=== PATIENT | female | born 1965 | race American Indian/Alaskan Native ===

== ENCOUNTER 2022-02-06 13:17 | Inpatient (IN) ==
[2022-02-06] MEDS ORDERED: GLUCAGON 1 MG VIAL IM PRN (16:12)
[2022-02-06] MEDS ORDERED: ACETAMINOPHEN 325 MG TABLET PO PRN (16:13)
[2022-02-06] MEDS ORDERED: ONDANSETRON 4 MG/2 ML VIAL IV PRN (16:13)
[2022-02-06] MEDS ORDERED: SIMETHICONE CHEW 125 MG TABLET PO PRN (16:14)
[2022-02-06] MEDS ORDERED: DOCUSATE SODIUM 100 MG CAPSULE PO PRN (16:14)
[2022-02-06] MEDS ORDERED: DEXTROSE 10% 250 ML BAG IV PRN (16:37)
[2022-02-06 16:55] LABS: Basophils # 0.1 10*3/uL (0.0-0.2); Eosinophils # 0.3 10*3/uL (0.0-0.87); Eosinophils % 4.2 % (0.00-10.9); Hematocrit 40.7 VOL% (35.7-47.0); Hemoglobin 12.7 GM/DL (12.0-16.0); Immature Granulocytes % 0.3 %; Immature Granulocytes Absolute 0.02 #; Lymphocytes # 1.7 10*3/uL (1.4-4.0); Lymphocytes % 27.6 % (21.3-54.2); Mean Corpuscular HGB Conc 31.2 GM/DL (32-36); Mean Corpuscular Volume 95.1 FL (87-102); Mean Platelet Volume 10.8 FL (9.6-12.0); Monocytes # 0.6 10*3/uL (0.11-0.8); Monocytes % 9.5 % (1.7-12.7); Neutrophils % 57.4 % (38.7-73.9); Platelet Count 198 T/CUMM (130-400); Red Blood Count 4.28 MC/CUMM (3.8-5.5)
[2022-02-06 17:51] LABS: Albumin 2.6 G/DL (3.4-5.0); Bilirubin,Total 0.7 MG/DL (0.20-1.00); Calcium 7.9 MG/DL (8.5-10.1); Osmolality,Calculated 294.7 MOS/KG (273-304); Potassium 4.4 MMOL/L (3.5-5.1); Thyroid Stimulating Hormone 4.1 uIU/ml (0.358-3.74)
[2022-02-06] MEDS: ENOXAPARIN 40 MG/0.4 ML SYRINGE SUBCUT SCH (18:00)
[2022-02-06] MEDS: hydrALAZINE 20 MG/1 ML VIAL IV PRN (18:00)
[2022-02-07 05:51] LABS: Basophils # 0.1 10*3/uL (0.0-0.2); Basophils % 0.9 % (0.0-0.8); Eosinophils # 0.3 10*3/uL (0.0-0.87); Eosinophils % 4.5 % (0.00-10.9); Hematocrit 37.6 VOL% (35.7-47.0); Hemoglobin 11.7 GM/DL (12.0-16.0); Immature Granulocytes % 0.3 %; Immature Granulocytes Absolute 0.02 #; Lymphocytes # 1.2 10*3/uL (1.4-4.0); Lymphocytes % 21.4 % (21.3-54.2); Mean Corpuscular HGB Conc 31.1 GM/DL (32-36); Mean Corpuscular Volume 94.9 FL (87-102); Mean Platelet Volume 10.6 FL (9.6-12.0); Monocytes # 0.6 10*3/uL (0.11-0.8); Monocytes % 10.8 % (1.7-12.7); Neutrophils % 62.1 % (38.7-73.9); Platelet Count 188 T/CUMM (130-400); Red Blood Count 3.96 MC/CUMM (3.8-5.5); Red Cell Distribution Width 18.8 % (9.3-17.3); White Blood Count 5.7 T/CUMM (4-12)
[2022-02-07 06:04] LABS: Albumin 2.1 G/DL (3.4-5.0); Bilirubin,Total 0.7 MG/DL (0.20-1.00); Calcium 8.1 MG/DL (8.5-10.1); Osmolality,Calculated 294.7 MOS/KG (273-304); Potassium 4.6 MMOL/L (3.5-5.1); Risk Ratio 3.21; Total Protein 6.3 G/DL (6.4-8.2); VLDL Cholesterol 14.8 MG/DL
[2022-02-07] MEDS ORDERED: PERMETHRIN 5% CREAM 60 GM TUBE TOP ONE (08:00)
[2022-02-07] MEDS: INSULIN REGULAR 100 UNIT/ML SUBCUT SCH ×4 (08:27→19:35)
[2022-02-07] MEDS: PANTOPRAZOLE 40 MG TABLET PO SCH (09:17)
[2022-02-07] MEDS: ENOXAPARIN 40 MG/0.4 ML SYRINGE SUBCUT SCH (09:17)
[2022-02-07 11:14] LABS: Mucus,Urine Occasional /LPF (Occasional); RBC,Urine <1 /HPF (0-4); Squamous Epithelial Cell,Urine Occasional /HPF (0-10)
[2022-02-07 11:21] LABS: Glucose,Urine (UA) Negative (Negative); Ketones,Urine Negative (Negative); Nitrite,Urine Negative (Negative); Protein,Urine >=300 mg/dL (Negative); Urine Appearance Clear (Clear); Urine Color Yellow (Yellow); Urine Specific Gravity > 1.030 (1.001-1.035); Urine pH 5.5 (4.5-8.0)
[2022-02-07 11:22] LABS: Bilirubin,Urine Small mg/dL (Negative); Blood, Urine Trace mg/dL (Negative); Urine Urobilinogen 0.2 eU/dL (<2.0)
[2022-02-07] MEDS: ASPIRIN EC 81 MG TABLET PO SCH (12:22)
[2022-02-07] MEDS: SACUBITRIL/VALSARTAN 49-51 MG TABLET PO SCH ×2 (12:22→19:35)
[2022-02-07] MEDS: ATORVASTATIN 20 MG TABLET PO SCH (12:22)
[2022-02-07] MEDS: SPIRONOLACTONE 25 MG TABLET PO SCH (12:23)
[2022-02-07] MEDS: FUROSEMIDE 40 MG/4 ML VIAL IV SCH ×2 (12:23→16:28)
[2022-02-07] MEDS ORDERED: SACUBITRIL/VALSARTAN 49-51 MG TABLET PO SCH (12:30)
[2022-02-07] MEDS: hydrALAZINE 20 MG/1 ML VIAL IV PRN (16:27)
[2022-02-07] MEDS: carvediloL 6.25 MG TABLET PO SCH (16:28)
[2022-02-08 04:58] LABS: Basophils # 0.1 10*3/uL (0.0-0.2); Basophils % 0.9 % (0.0-0.8); Eosinophils # 0.2 10*3/uL (0.0-0.87); Eosinophils % 3.6 % (0.00-10.9); Hematocrit 36.9 VOL% (35.7-47.0); Hemoglobin 11.8 GM/DL (12.0-16.0); Immature Granulocytes % 0.3 %; Immature Granulocytes Absolute 0.02 #; Lymphocytes # 1.2 10*3/uL (1.4-4.0); Lymphocytes % 18.1 % (21.3-54.2); Mean Corpuscular Volume 94.4 FL (87-102); Mean Platelet Volume 10.5 FL (9.6-12.0); Monocytes # 0.8 10*3/uL (0.11-0.8); Monocytes % 11.6 % (1.7-12.7); Neutrophils % 65.5 % (38.7-73.9); Platelet Count 198 T/CUMM (130-400); Red Blood Count 3.91 MC/CUMM (3.8-5.5); White Blood Count 6.6 T/CUMM (4-12)
[2022-02-08 05:17] LABS: Osmolality,Calculated 294.1 MOS/KG (273-304); Potassium 4.2 MMOL/L (3.5-5.1)
[2022-02-08] MEDS: INSULIN REGULAR 100 UNIT/ML SUBCUT SCH ×4 (08:39→21:27)
[2022-02-08] MEDS: FUROSEMIDE 40 MG/4 ML VIAL IV SCH ×2 (08:43→17:32)
[2022-02-08] MEDS: ENOXAPARIN 40 MG/0.4 ML SYRINGE SUBCUT SCH (08:44)
[2022-02-08] MEDS: SPIRONOLACTONE 25 MG TABLET PO SCH (08:44)
[2022-02-08] MEDS: ATORVASTATIN 20 MG TABLET PO SCH (08:44)
[2022-02-08] MEDS: ASPIRIN EC 81 MG TABLET PO SCH (08:44)
[2022-02-08] MEDS: SACUBITRIL/VALSARTAN 49-51 MG TABLET PO SCH ×2 (08:44→21:25)
[2022-02-08] MEDS: PANTOPRAZOLE 40 MG TABLET PO SCH (08:45)
[2022-02-08] MEDS: carvediloL 6.25 MG TABLET PO SCH ×2 (08:45→17:32)
[2022-02-08] MEDS ORDERED: metOLazone 5 MG TABLET PO SCH (10:00)
[2022-02-08] MEDS ORDERED: metOLazone 5 MG TABLET PO ONE (13:00)
[2022-02-09 05:50] LABS: Calcium 7.7 MG/DL (8.5-10.1); Osmolality,Calculated 293.1 MOS/KG (273-304); Potassium 4.3 MMOL/L (3.5-5.1)
[2022-02-09 05:51] LABS: Basophils # 0.1 10*3/uL (0.0-0.2); Eosinophils # 0.3 10*3/uL (0.0-0.87); Eosinophils % 5.2 % (0.00-10.9); Hematocrit 34.8 VOL% (35.7-47.0); Hemoglobin 10.8 GM/DL (12.0-16.0); Immature Granulocytes % 0.3 %; Immature Granulocytes Absolute 0.02 #; Lymphocytes # 1.8 10*3/uL (1.4-4.0); Lymphocytes % 29.1 % (21.3-54.2); Mean Corpuscular Volume 96.1 FL (87-102); Mean Platelet Volume 10.7 FL (9.6-12.0); Monocytes # 0.9 10*3/uL (0.11-0.8); Monocytes % 14.1 % (1.7-12.7); Neutrophils % 50.3 % (38.7-73.9); Platelet Count 193 T/CUMM (130-400); Red Blood Count 3.62 MC/CUMM (3.8-5.5); Red Cell Distribution Width 18.7 % (9.3-17.3); White Blood Count 6.3 T/CUMM (4-12)
[2022-02-09] MEDS: INSULIN REGULAR 100 UNIT/ML SUBCUT SCH ×3 (07:27→16:00)
[2022-02-09] MEDS: SACUBITRIL/VALSARTAN 49-51 MG TABLET PO SCH (08:17)
[2022-02-09] MEDS: FUROSEMIDE 40 MG/4 ML VIAL IV SCH ×2 (08:17→16:00)
[2022-02-09] MEDS: ENOXAPARIN 40 MG/0.4 ML SYRINGE SUBCUT SCH (08:17)
[2022-02-09] MEDS: ASPIRIN EC 81 MG TABLET PO SCH (08:18)
[2022-02-09] MEDS: carvediloL 6.25 MG TABLET PO SCH ×2 (08:18→16:00)
[2022-02-09] MEDS: PANTOPRAZOLE 40 MG TABLET PO SCH (08:18)
[2022-02-09] MEDS: SPIRONOLACTONE 25 MG TABLET PO SCH (08:18)
[2022-02-09] MEDS: ATORVASTATIN 20 MG TABLET PO SCH (08:18)
[2022-02-09 13:16] VITALS: BP 154/75
== END 2022-02-09 16:00 | disposition home or self-care (01) | DRG 280 ==
LOC: SUATTDRO → N.ED 13:17 → N.EDINP 19:35 → SUATTDRO 19:35 → N.EDINP 20:45 → N.3E 21:28
PROVIDERS: ADMIT Hospitalist; ATTEND Internal Medicine

== ENCOUNTER 2022-08-25 10:21 | Inpatient (IN) ==
[~2022-08-25 10:21] MED LIST: ASPIRIN 325 MG TABLET PO ONE; DIAZEPAM 5 MG TABLET PO ONE; MAGNESIUM SULF RIDER 2 GM/50 ML PREMIX IV PRN; POTASSIUM CHLORIDE RIDER 10 MEQ/100 ML PREMIX IV PRN; diphenhydrAMINE CAP 50 MG CAPSULE PO ONE
[2022-08-25] MEDS ORDERED: ASPIRIN 325 MG TABLET ONE (12:33)
[2022-08-25] MEDS ORDERED: DIAZEPAM 5 MG TABLET ONE (12:33)
[2022-08-25] MEDS ORDERED: diphenhydrAMINE CAP 50 MG CAPSULE ONE (12:33)
[2022-08-25] MEDS: SODIUM CHLORIDE 0.9% 1,000 ML IV SCH ×2 (12:41→16:21)
[2022-08-25] MEDS ORDERED: MIDAZOLAM 2 MG/2 ML VIAL ONE (14:11)
[2022-08-25] MEDS ORDERED: HYDROmorphone 1 MG/1 ML SYRINGE ONE (14:41)
[2022-08-25] MEDS ORDERED: NITROGLYCERIN SL 0.4 MG TABLET SL PRN (15:06)
[2022-08-25] MEDS ORDERED: ONDANSETRON 4 MG/2 ML VIAL IV PRN (15:06)
[2022-08-25] MEDS ORDERED: ZALEPLON 5 MG CAPSULE PO PRN (15:06)
[2022-08-25] MEDS ORDERED: FUROSEMIDE 40 MG/4 ML VIAL IV ONE (15:14)
[2022-08-25] MEDS ORDERED: INFLUENZA VIRUS VACCINE 0.5 ML SYRINGE IM ONE (16:27)
[2022-08-25] MEDS: carvediloL 6.25 MG TABLET PO SCH (17:57)
[2022-08-25 17:58] LABS: Bilirubin,Urine Negative (Negative); Blood, Urine Moderate mg/dL (Negative); Glucose,Urine (UA) Negative (Negative); Hyaline Casts,Urine 3 /LPF (0-3); Ketones,Urine Negative (Negative); Mucus,Urine Occasional /LPF (Occasional); Nitrite,Urine Negative (Negative); Protein,Urine 100 mg/dL (Negative); RBC,Urine 1 /HPF (0-4); Squamous Epithelial Cell,Urine Occasional /HPF (0-10); Urine Appearance CLEAR (Clear); Urine Color Yellow (Yellow); Urine Specific Gravity 1.021 (1.001-1.035); Urine Urobilinogen < 2.0 eU/dL (<2.0)
[2022-08-25] MEDS: SACUBITRIL/VALSARTAN 49-51 MG TABLET PO SCH (21:00)
[2022-08-26 05:49] LABS: Basophils # 0.1 10*3/uL (0.0-0.2); Basophils % 1.1 % (0.0-0.8); Eosinophils # 0.3 10*3/uL (0.0-0.87); Eosinophils % 3.3 % (0.00-10.9); Hemoglobin 13.1 GM/DL (12.0-16.0); Immature Granulocytes % 0.5 %; Immature Granulocytes Absolute 0.04 #; Lymphocytes # 1.1 10*3/uL (1.4-4.0); Mean Corpuscular HGB Conc 31.2 GM/DL (32-36); Mean Corpuscular Volume 98.1 FL (87-102); Mean Platelet Volume 10.7 FL (9.6-12.0); Monocytes # 0.7 10*3/uL (0.11-0.8); Monocytes % 9.7 % (1.7-12.7); NRBC # 0.02 10*3/uL; Neutrophils % 70.4 % (38.7-73.9); Platelet Count 202 T/CUMM (130-400); Red Blood Count 4.28 MC/CUMM (3.8-5.5); Red Cell Distribution Width 19.2 % (9.3-17.3); White Blood Count 7.6 T/CUMM (4-12)
[2022-08-26 06:19] LABS: Calcium 7.9 MG/DL (8.5-10.1); Osmolality,Calculated 299.6 MOS/KG (273-304); Potassium 4.4 MMOL/L (3.5-5.1); Risk Ratio 4.96; VLDL Cholesterol 18.4 MG/DL
[2022-08-26] MEDS: ATORVASTATIN 20 MG TABLET PO SCH (08:29)
[2022-08-26] MEDS: SPIRONOLACTONE 25 MG TABLET PO SCH (08:30)
[2022-08-26] MEDS: SACUBITRIL/VALSARTAN 49-51 MG TABLET PO SCH ×2 (08:30→20:42)
[2022-08-26] MEDS: ASPIRIN EC 81 MG TABLET PO SCH (08:30)
[2022-08-26] MEDS: carvediloL 6.25 MG TABLET PO SCH ×2 (08:30→17:13)
[2022-08-26] MEDS ORDERED: FUROSEMIDE 40 MG TABLET PO SCH (09:00)
[2022-08-26] MEDS: SODIUM CHLORIDE 0.9% 1,000 ML IV SCH (11:51)
[2022-08-26] MEDS: LOPERAMIDE 2 MG CAPSULE PO PRN ×3 (14:16→20:42)
[2022-08-26] MEDS: FUROSEMIDE 40 MG/4 ML VIAL IV SCH (15:37)
[2022-08-26] MEDS: INSULIN LISPRO 100 UNIT/ML SUBCUT SCH ×2 (17:13→21:41)
[2022-08-27 06:25] LABS: Basophils % 0.4 % (0.0-0.8); Eosinophils # 0.2 10*3/uL (0.0-0.87); Eosinophils % 1.7 % (0.00-10.9); Hematocrit 37.7 VOL% (35.7-47.0); Hemoglobin 11.9 GM/DL (12.0-16.0); Immature Granulocytes % 0.5 %; Immature Granulocytes Absolute 0.05 #; Lymphocytes # 1.1 10*3/uL (1.4-4.0); Lymphocytes % 10.7 % (21.3-54.2); Mean Corpuscular HGB Conc 31.6 GM/DL (32-36); Mean Corpuscular Volume 97.7 FL (87-102); Mean Platelet Volume 11.1 FL (9.6-12.0); Monocytes # 1.1 10*3/uL (0.11-0.8); Monocytes % 11.5 % (1.7-12.7); NRBC # 0.02 10*3/uL; Neutrophils % 75.2 % (38.7-73.9); Platelet Count 193 T/CUMM (130-400); Red Blood Count 3.86 MC/CUMM (3.8-5.5); Red Cell Distribution Width 18.6 % (9.3-17.3); White Blood Count 9.8 T/CUMM (4-12)
[2022-08-27 06:42] LABS: Calcium 7.8 MG/DL (8.5-10.1); Osmolality,Calculated 298.8 MOS/KG (273-304); Potassium 4.7 MMOL/L (3.5-5.1)
[2022-08-27] MEDS: FUROSEMIDE 40 MG/4 ML VIAL IV SCH ×2 (09:40→15:10)
[2022-08-27] MEDS: carvediloL 6.25 MG TABLET PO SCH ×2 (09:40→16:02)
[2022-08-27] MEDS: INSULIN LISPRO 100 UNIT/ML SUBCUT SCH ×4 (09:40→23:00)
[2022-08-27] MEDS: ATORVASTATIN 20 MG TABLET PO SCH (09:41)
[2022-08-27] MEDS: SPIRONOLACTONE 25 MG TABLET PO SCH (09:41)
[2022-08-27] MEDS: SACUBITRIL/VALSARTAN 49-51 MG TABLET PO SCH ×2 (09:41→21:18)
[2022-08-27] MEDS: ASPIRIN EC 81 MG TABLET PO SCH (09:41)
[2022-08-27 13:38] LABS: Total Protein 24 Hr Ur Result 935 MG/24HR (0-149.1); Total Volume,Urine 1100 ML (400-2000)
[2022-08-27 14:13] LABS: Albumin 1.7 G/DL (3.4-5.0); Bilirubin,Total 1.2 MG/DL (0.20-1.00); Calcium 7.8 MG/DL (8.5-10.1); Potassium 4.4 MMOL/L (3.5-5.1); Total Protein 5.7 G/DL (6.4-8.2)
[2022-08-28 05:10] LABS: Basophils # 0.1 10*3/uL (0.0-0.2); Basophils % 0.6 % (0.0-0.8); Eosinophils # 0.2 10*3/uL (0.0-0.87); Eosinophils % 1.8 % (0.00-10.9); Hematocrit 37.9 VOL% (35.7-47.0); Hemoglobin 11.9 GM/DL (12.0-16.0); Immature Granulocytes % 0.5 %; Immature Granulocytes Absolute 0.04 #; Lymphocytes # 1.3 10*3/uL (1.4-4.0); Lymphocytes % 15.1 % (21.3-54.2); Mean Corpuscular HGB Conc 31.4 GM/DL (32-36); Mean Corpuscular Volume 97.2 FL (87-102); Mean Platelet Volume 10.8 FL (9.6-12.0); Monocytes # 1.1 10*3/uL (0.11-0.8); Monocytes % 12.1 % (1.7-12.7); Neutrophils % 69.9 % (38.7-73.9); Platelet Count 209 T/CUMM (130-400); Red Cell Distribution Width 18.9 % (9.3-17.3); White Blood Count 8.7 T/CUMM (4-12)
[2022-08-28 05:28] LABS: Calcium 7.8 MG/DL (8.5-10.1); Osmolality,Calculated 299.1 MOS/KG (273-304)
[2022-08-28] MEDS: INSULIN LISPRO 100 UNIT/ML SUBCUT SCH ×4 (08:37→21:54)
[2022-08-28] MEDS: FUROSEMIDE 40 MG/4 ML VIAL IV SCH ×2 (09:48→17:57)
[2022-08-28] MEDS: ASPIRIN EC 81 MG TABLET PO SCH (09:48)
[2022-08-28] MEDS: carvediloL 6.25 MG TABLET PO SCH ×2 (09:48→17:57)
[2022-08-28] MEDS: ATORVASTATIN 20 MG TABLET PO SCH (09:48)
[2022-08-28] MEDS ORDERED: metOLazone 5 MG TABLET PO SCH (11:30)
[2022-08-29 04:41] LABS: Basophils # 0.1 10*3/uL (0.0-0.2); Basophils % 0.8 % (0.0-0.8); Eosinophils # 0.2 10*3/uL (0.0-0.87); Eosinophils % 2.7 % (0.00-10.9); Hematocrit 38.5 VOL% (35.7-47.0); Hemoglobin 12.3 GM/DL (12.0-16.0); Immature Granulocytes % 0.4 %; Immature Granulocytes Absolute 0.03 #; Lymphocytes # 1.2 10*3/uL (1.4-4.0); Lymphocytes % 15.8 % (21.3-54.2); Mean Corpuscular HGB Conc 31.9 GM/DL (32-36); Mean Corpuscular Volume 95.8 FL (87-102); Mean Platelet Volume 10.1 FL (9.6-12.0); Monocytes % 13.9 % (1.7-12.7); Neutrophils % 66.4 % (38.7-73.9); Platelet Count 189 T/CUMM (130-400); Red Blood Count 4.02 MC/CUMM (3.8-5.5); Red Cell Distribution Width 18.7 % (9.3-17.3); White Blood Count 7.3 T/CUMM (4-12)
[2022-08-29 05:04] LABS: Calcium 7.9 MG/DL (8.5-10.1); Potassium 4.7 MMOL/L (3.5-5.1)
[2022-08-29] MEDS: INSULIN LISPRO 100 UNIT/ML SUBCUT SCH ×3 (09:15→16:12)
[2022-08-29] MEDS: ASPIRIN EC 81 MG TABLET PO SCH (09:20)
[2022-08-29] MEDS: carvediloL 6.25 MG TABLET PO SCH ×2 (09:20→17:40)
[2022-08-29] MEDS: ATORVASTATIN 20 MG TABLET PO SCH (09:20)
[2022-08-29] MEDS: FUROSEMIDE 40 MG/4 ML VIAL IV SCH ×2 (09:23→15:44)
[2022-08-29] MEDS: SILDENAFIL 20 MG TABLET PO SCH (15:44)
[2022-08-30] MEDS: SILDENAFIL 20 MG TABLET PO SCH ×2 (00:39→09:04)
[2022-08-30] MEDS: INSULIN LISPRO 100 UNIT/ML SUBCUT SCH ×3 (00:40→11:51)
[2022-08-30 06:04] LABS: Basophils # 0.1 10*3/uL (0.0-0.2); Basophils % 0.7 % (0.0-0.8); Eosinophils # 0.2 10*3/uL (0.0-0.87); Eosinophils % 3.2 % (0.00-10.9); Hematocrit 37.2 VOL% (35.7-47.0); Hemoglobin 11.9 GM/DL (12.0-16.0); Immature Granulocytes % 0.3 %; Immature Granulocytes Absolute 0.02 #; Lymphocytes # 1.1 10*3/uL (1.4-4.0); Lymphocytes % 15.6 % (21.3-54.2); Mean Corpuscular Volume 95.9 FL (87-102); Mean Platelet Volume 11.1 FL (9.6-12.0); Monocytes % 14.7 % (1.7-12.7); Neutrophils % 65.5 % (38.7-73.9); Platelet Count 200 T/CUMM (130-400); Red Blood Count 3.88 MC/CUMM (3.8-5.5); Red Cell Distribution Width 18.6 % (9.3-17.3); White Blood Count 6.9 T/CUMM (4-12)
[2022-08-30 06:35] LABS: Calcium 7.8 MG/DL (8.5-10.1); Potassium 4.7 MMOL/L (3.5-5.1)
[2022-08-30] MEDS: FUROSEMIDE 40 MG/4 ML VIAL IV SCH (08:36)
[2022-08-30 08:55] VITALS: BP 108/53
[2022-08-30] MEDS: carvediloL 6.25 MG TABLET PO SCH (09:04)
[2022-08-30] MEDS: SACUBITRIL/VALSARTAN 49-51 MG TABLET PO SCH (09:04)
[2022-08-30] MEDS: ATORVASTATIN 20 MG TABLET PO SCH (09:04)
[2022-08-30] MEDS: ASPIRIN EC 81 MG TABLET PO SCH (09:04)
== END 2022-08-30 12:55 | disposition home or self-care (01) | DRG 682 ==
LOC: N.CL 10:21 → N.2W 15:51 → N.TELES 08-28 19:27
PROVIDERS: ADMIT Internal Medicine Cardiovascular Disease; ATTEND Internal Medicine Cardiovascular Disease

== ENCOUNTER 2022-09-20 15:51 | Inpatient (IN) ==
[2022-09-20 16:52] LABS: Basophils % 0.3 % (0.0-0.8); Eosinophils # 0.1 10*3/uL (0.0-0.87); Eosinophils % 0.4 % (0.00-10.9); Hematocrit 38.2 VOL% (35.7-47.0); Hemoglobin 12.2 GM/DL (12.0-16.0); Immature Granulocytes Absolute 0.12 #; Lymphocytes # 0.4 10*3/uL (1.4-4.0); Lymphocytes % 3.5 % (21.3-54.2); Mean Corpuscular HGB Conc 31.9 GM/DL (32-36); Mean Corpuscular Volume 96.5 FL (87-102); Mean Platelet Volume 10.8 FL (9.6-12.0); Monocytes # 0.5 10*3/uL (0.11-0.8); Monocytes % 3.6 % (1.7-12.7); NRBC # 0.03 10*3/uL; Neutrophils % 91.2 % (38.7-73.9); Platelet Count 197 T/CUMM (130-400); Red Blood Count 3.96 MC/CUMM (3.8-5.5); Red Cell Distribution Width 19.4 % (9.3-17.3); White Blood Count 12.5 T/CUMM (4-12)
[2022-09-20 17:09] LABS: Albumin 2.2 G/DL (3.4-5.0); Bilirubin,Total 3.2 MG/DL (0.20-1.00); Calcium 8.1 MG/DL (8.5-10.1); Osmolality,Calculated 296.8 MOS/KG (273-304); Potassium 3.9 MMOL/L (3.5-5.1); Total Protein 6.7 G/DL (6.4-8.2)
[2022-09-20] MEDS ORDERED: FUROSEMIDE 40 MG/4 ML VIAL IV STA (17:28)
[2022-09-20] MEDS ORDERED: MAGNESIUM SULF RIDER 2 GM/50 ML PREMIX IV PRN (17:58)
[2022-09-20] MEDS ORDERED: ONDANSETRON 4 MG/2 ML VIAL IV PRN (17:58)
[2022-09-20] MEDS ORDERED: MAGNESIUM SULF RIDER 4 GM/100 ML PREMIX IV PRN (17:58)
[2022-09-20] MEDS ORDERED: ACETAMINOPHEN 325 MG TABLET PO PRN (17:58)
[2022-09-20] MEDS ORDERED: ENOXAPARIN 40 MG/0.4 ML SYRINGE SUBCUT SCH ×2 (18:00→21:00)
[2022-09-20] MEDS: FUROSEMIDE 40 MG/4 ML VIAL IV SCH (18:17)
[2022-09-20 18:22] LABS: Band Neutrophils 7 % (0-10); Lymphocytes 4 % (20-55); Total Cells Counted 100
[2022-09-20 18:23] LABS: Hypochromia Slight; Ovalocytes Slight
[2022-09-20 18:24] LABS: Platelet Estimate Normal; Polychromasia Slight
[2022-09-20 18:24] LABS: Urine Appearance Clear (Clear); Urine Color Yellow (Yellow)
[2022-09-20 18:25] LABS: Bilirubin,Urine Small mg/dL (Negative); Blood, Urine Large mg/dL (Negative); Glucose,Urine (UA) Negative (Negative); Ketones,Urine Negative (Negative); Nitrite,Urine Negative (Negative); Protein,Urine >=300 mg/dL (Negative); Urine Specific Gravity 1.025 (1.001-1.035); Urine pH 5.5 (4.5-8.0)
[2022-09-20 18:26] LABS: Bacteria,Urine Occasional /HPF (Few); Hyaline Casts,Urine 7 /LPF (0-3); Mucus,Urine Occasional /LPF (Occasional); RBC,Urine 7 /HPF (0-4); Squamous Epithelial Cell,Urine Occasional /HPF (0-10)
[2022-09-20] MEDS: ASPIRIN EC 325 MG TABLET PO SCH (22:23)
[2022-09-20] MEDS: SILDENAFIL 20 MG TABLET PO SCH (22:23)
[2022-09-21 04:57] LABS: Basophils # 0.1 10*3/uL (0.0-0.2); Basophils % 0.3 % (0.0-0.8); Eosinophils # 0.2 10*3/uL (0.0-0.87); Eosinophils % 0.8 % (0.00-10.9); Hematocrit 37.4 VOL% (35.7-47.0); Hemoglobin 11.7 GM/DL (12.0-16.0); Immature Granulocytes % 4.6 %; Immature Granulocytes Absolute 1.29 #; Lymphocytes # 1.2 10*3/uL (1.4-4.0); Lymphocytes % 4.2 % (21.3-54.2); Mean Corpuscular HGB Conc 31.3 GM/DL (32-36); Mean Corpuscular Volume 98.2 FL (87-102); Mean Platelet Volume 11.1 FL (9.6-12.0); Monocytes # 1.8 10*3/uL (0.11-0.8); Monocytes % 6.6 % (1.7-12.7); Neutrophils % 83.5 % (38.7-73.9); Platelet Count 192 T/CUMM (130-400); Red Blood Count 3.81 MC/CUMM (3.8-5.5); Red Cell Distribution Width 19.9 % (9.3-17.3)
[2022-09-21 05:19] LABS: Band Neutrophils 7 % (0-10); Lymphocytes 8 % (20-55); Platelet Estimate Adequate; Total Cells Counted 100
[2022-09-21 05:20] LABS: Calcium 7.9 MG/DL (8.5-10.1); Osmolality,Calculated 290.3 MOS/KG (273-304); Potassium 3.9 MMOL/L (3.5-5.1)
[2022-09-21] MEDS: PANTOPRAZOLE 40 MG TABLET PO SCH (09:07)
[2022-09-21] MEDS: FUROSEMIDE 40 MG/4 ML VIAL IV SCH ×2 (09:07→17:11)
[2022-09-21] MEDS: SILDENAFIL 20 MG TABLET PO SCH ×3 (09:07→21:05)
[2022-09-21] MEDS: ASPIRIN EC 325 MG TABLET PO SCH (09:07)
[2022-09-21] MEDS: ENOXAPARIN 100 MG/ML SYRINGE SUBCUT SCH (10:44)
[2022-09-21] MEDS ORDERED: VANCOMYCIN INJ 1,500 MG in SODIUM CHLORIDE 0.9% 500 ML IV ONE (11:00)
[2022-09-21] MEDS ORDERED: GLUCAGON 1 MG VIAL IM PRN (11:22)
[2022-09-21] MEDS: cefTRIAXone 1,000 MG in SODIUM CHLORIDE 0.9% 100 ML IV SCH (11:22)
[2022-09-21] MEDS ORDERED: DEXTROSE 10% 250 ML BAG IV PRN (11:26)
[2022-09-21] MEDS: INSULIN REGULAR 100 UNIT/ML SUBCUT SCH ×3 (12:38→22:06)
[2022-09-22 04:47] LABS: Basophils # 0.1 10*3/uL (0.0-0.2); Basophils % 0.2 % (0.0-0.8); Hematocrit 37.2 VOL% (35.7-47.0); Hemoglobin 11.8 GM/DL (12.0-16.0); Immature Granulocytes % 2.7 %; Immature Granulocytes Absolute 0.61 #; Lymphocytes % 4.3 % (21.3-54.2); Mean Corpuscular HGB Conc 31.7 GM/DL (32-36); Mean Corpuscular Volume 96.6 FL (87-102); Mean Platelet Volume 11.1 FL (9.6-12.0); Monocytes # 1.5 10*3/uL (0.11-0.8); Monocytes % 6.5 % (1.7-12.7); NRBC # 0.02 10*3/uL; Neutrophils % 86.3 % (38.7-73.9); Platelet Count 181 T/CUMM (130-400); Red Blood Count 3.85 MC/CUMM (3.8-5.5); Red Cell Distribution Width 19.6 % (9.3-17.3); White Blood Count 22.6 T/CUMM (4-12)
[2022-09-22 05:13] LABS: Calcium 7.8 MG/DL (8.5-10.1); Osmolality,Calculated 291.4 MOS/KG (273-304); Potassium 4.4 MMOL/L (3.5-5.1)
[2022-09-22 05:14] LABS: Band Neutrophils 2 % (0-10); Eosinophils 1 % (0-10); Lymphocytes 4 % (20-55); Platelet Estimate Adequate; Total Cells Counted 100
[2022-09-22 05:29] LABS: Albumin 1.8 G/DL (3.4-5.0); Bilirubin,Total 2.4 MG/DL (0.20-1.00); Calcium 8.1 MG/DL (8.5-10.1); Osmolality,Calculated 295.1 MOS/KG (273-304); Potassium 4.4 MMOL/L (3.5-5.1); Total Protein 6.1 G/DL (6.4-8.2)
[2022-09-22] MEDS: INSULIN REGULAR 100 UNIT/ML SUBCUT SCH ×3 (08:26→16:46)
[2022-09-22] MEDS: SILDENAFIL 20 MG TABLET PO SCH ×3 (08:43→23:20)
[2022-09-22] MEDS: PANTOPRAZOLE 40 MG TABLET PO SCH (08:43)
[2022-09-22] MEDS: ASPIRIN EC 81 MG TABLET PO SCH (08:43)
[2022-09-22] MEDS: FUROSEMIDE 40 MG/4 ML VIAL IV SCH ×2 (08:49→15:40)
[2022-09-22] MEDS ORDERED: VANCOMYCIN INJ 1,500 MG in SODIUM CHLORIDE 0.9% 500 ML IV PRN (11:00)
[2022-09-22] MEDS: cefTRIAXone 1,000 MG in SODIUM CHLORIDE 0.9% 100 ML IV SCH (11:31)
[2022-09-22] MEDS: ENOXAPARIN 100 MG/ML SYRINGE SUBCUT SCH (12:58)
[2022-09-22] MEDS: ceFAZolin 2,000 MG/50 ML DUPLEX IV SCH (15:38)
[2022-09-23] MEDS: INSULIN REGULAR 100 UNIT/ML SUBCUT SCH ×5 (00:03→21:50)
[2022-09-23] MEDS: ceFAZolin 2,000 MG/50 ML DUPLEX IV SCH ×2 (04:19→14:56)
[2022-09-23] MEDS: PANTOPRAZOLE 40 MG TABLET PO SCH (08:51)
[2022-09-23] MEDS: ASPIRIN EC 81 MG TABLET PO SCH (08:51)
[2022-09-23] MEDS: SILDENAFIL 20 MG TABLET PO SCH ×3 (08:51→21:49)
[2022-09-23] MEDS: FUROSEMIDE 40 MG/4 ML VIAL IV SCH ×2 (08:52→16:52)
[2022-09-23 08:53] LABS: Basophils # 0.1 10*3/uL (0.0-0.2); Basophils % 0.5 % (0.0-0.8); Eosinophils # 0.1 10*3/uL (0.0-0.87); Eosinophils % 0.8 % (0.00-10.9); Hematocrit 37.5 VOL% (35.7-47.0); Hemoglobin 12.1 GM/DL (12.0-16.0); Immature Granulocytes % 1.3 %; Immature Granulocytes Absolute 0.23 #; Lymphocytes # 1.1 10*3/uL (1.4-4.0); Lymphocytes % 6.2 % (21.3-54.2); Mean Corpuscular HGB Conc 32.3 GM/DL (32-36); Mean Corpuscular Volume 95.4 FL (87-102); Mean Platelet Volume 10.9 FL (9.6-12.0); Monocytes # 1.1 10*3/uL (0.11-0.8); Monocytes % 6.4 % (1.7-12.7); NRBC # 0.03 10*3/uL; Neutrophils % 84.8 % (38.7-73.9); Platelet Count 175 T/CUMM (130-400); Red Blood Count 3.93 MC/CUMM (3.8-5.5); Red Cell Distribution Width 19.4 % (9.3-17.3); White Blood Count 17.3 T/CUMM (4-12)
[2022-09-23 09:11] LABS: Calcium 7.8 MG/DL (8.5-10.1); Osmolality,Calculated 295.5 MOS/KG (273-304); Potassium 3.9 MMOL/L (3.5-5.1)
[2022-09-23] MEDS: ENOXAPARIN 100 MG/ML SYRINGE SUBCUT SCH (12:21)
[2022-09-23 13:52] LABS: Hepatitis B Core IgM Quant < 0.05 Index; Hepatitis B Surface Ag Quant < 0.10 Index; Hepatitis B Surface Ag Result Non-Reactive (NonReactive); Hepatitis C Virus Ab Quant 0.07 Index; Hepatitis C Virus Ab Result Non-Reactive (NonReactive)
[2022-09-23] MEDS: carvediloL 6.25 MG TABLET PO SCH ×2 (14:56→21:49)
[2022-09-24] MEDS: ceFAZolin 2,000 MG/50 ML DUPLEX IV SCH ×2 (03:09→15:48)
[2022-09-24 04:52] LABS: Basophils # 0.1 10*3/uL (0.0-0.2); Basophils % 0.5 % (0.0-0.8); Eosinophils # 0.2 10*3/uL (0.0-0.87); Eosinophils % 1.6 % (0.00-10.9); Hematocrit 34.5 VOL% (35.7-47.0); Hemoglobin 11.4 GM/DL (12.0-16.0); Immature Granulocytes % 1.1 %; Immature Granulocytes Absolute 0.13 #; Lymphocytes # 1.2 10*3/uL (1.4-4.0); Lymphocytes % 9.5 % (21.3-54.2); Mean Platelet Volume 11.1 FL (9.6-12.0); Monocytes # 1.1 10*3/uL (0.11-0.8); Monocytes % 9.1 % (1.7-12.7); NRBC # 0.03 10*3/uL; Neutrophils % 78.2 % (38.7-73.9); Platelet Count 150 T/CUMM (130-400); Red Blood Count 3.67 MC/CUMM (3.8-5.5); Red Cell Distribution Width 19.2 % (9.3-17.3); White Blood Count 12.1 T/CUMM (4-12)
[2022-09-24 05:20] LABS: Calcium 7.8 MG/DL (8.5-10.1); Osmolality,Calculated 300.1 MOS/KG (273-304); Potassium 3.9 MMOL/L (3.5-5.1)
[2022-09-24] MEDS: INSULIN REGULAR 100 UNIT/ML SUBCUT SCH ×4 (08:30→21:10)
[2022-09-24] MEDS: FUROSEMIDE 40 MG/4 ML VIAL IV SCH ×2 (09:09→15:47)
[2022-09-24] MEDS: PANTOPRAZOLE 40 MG TABLET PO SCH (09:10)
[2022-09-24] MEDS: SILDENAFIL 20 MG TABLET PO SCH ×3 (09:10→21:09)
[2022-09-24] MEDS: carvediloL 6.25 MG TABLET PO SCH ×2 (09:10→21:09)
[2022-09-24 09:35] LABS: Albumin 1.9 G/DL (3.4-5.0); Bilirubin,Direct 2.17 MG/DL (0.0-0.20); Bilirubin,Indirect 0.2 MG/DL (0.0-1.0); Bilirubin,Total 2.4 MG/DL (0.20-1.00); Total Protein 6.4 G/DL (6.4-8.2)
[2022-09-24] MEDS ORDERED: LOPERAMIDE 2 MG CAPSULE PO PRN (10:51)
[2022-09-24 12:04] LABS: Bacteria,Urine Occasional /HPF (Few); Bilirubin,Urine Negative (Negative); Blood, Urine Small mg/dL (Negative); Glucose,Urine (UA) Negative (Negative); Ketones,Urine Negative (Negative); Mucus,Urine Occasional /LPF (Occasional); Nitrite,Urine Negative (Negative); Protein,Urine Trace mg/dL (Negative); RBC,Urine 1 /HPF (0-4); Squamous Epithelial Cell,Urine Occasional /HPF (0-10); Urine Appearance Clear (Clear); Urine Color Yellow (Yellow); Urine Specific Gravity 1.015 (1.001-1.035); Urine Urobilinogen 0.2 eU/dL (<2.0); Urine pH 5.5 (4.5-8.0)
[2022-09-25] MEDS: ceFAZolin 2,000 MG/50 ML DUPLEX IV SCH ×2 (04:45→17:34)
[2022-09-25 05:20] LABS: Basophils # 0.1 10*3/uL (0.0-0.2); Basophils % 0.6 % (0.0-0.8); Eosinophils # 0.2 10*3/uL (0.0-0.87); Eosinophils % 1.8 % (0.00-10.9); Hematocrit 35.4 VOL% (35.7-47.0); Hemoglobin 11.6 GM/DL (12.0-16.0); Immature Granulocytes % 2.3 %; Immature Granulocytes Absolute 0.25 #; Lymphocytes % 8.8 % (21.3-54.2); Mean Corpuscular HGB Conc 32.8 GM/DL (32-36); Mean Corpuscular Volume 94.9 FL (87-102); Mean Platelet Volume 11.4 FL (9.6-12.0); Monocytes # 1.3 10*3/uL (0.11-0.8); Monocytes % 12.2 % (1.7-12.7); NRBC # 0.03 10*3/uL; Neutrophils % 74.3 % (38.7-73.9); Platelet Count 167 T/CUMM (130-400); Red Blood Count 3.73 MC/CUMM (3.8-5.5); Red Cell Distribution Width 18.7 % (9.3-17.3); White Blood Count 10.9 T/CUMM (4-12)
[2022-09-25 05:34] LABS: Calcium 7.7 MG/DL (8.5-10.1); Osmolality,Calculated 302.1 MOS/KG (273-304); Potassium 3.8 MMOL/L (3.5-5.1)
[2022-09-25 05:37] LABS: Alanine Aminotransferase < 6 U/L (13-56); Albumin 1.7 G/DL (3.4-5.0); Alkaline Phosphatase 150 U/L (45-117); Aspartate Amino Transferase 21 U/L (0-37); Bilirubin,Indirect 0.3 MG/DL (0.0-1.0)
[2022-09-25] MEDS: FUROSEMIDE 40 MG/4 ML VIAL IV SCH ×2 (09:42→17:35)
[2022-09-25] MEDS: PANTOPRAZOLE 40 MG TABLET PO SCH (09:42)
[2022-09-25] MEDS: SILDENAFIL 20 MG TABLET PO SCH ×3 (09:42→20:55)
[2022-09-25] MEDS: carvediloL 6.25 MG TABLET PO SCH ×2 (09:42→20:55)
[2022-09-25] MEDS: INSULIN REGULAR 100 UNIT/ML SUBCUT SCH ×4 (09:43→20:56)
[2022-09-25 18:19] LABS: Total Volume,Urine 975 ML (400-2000)
[2022-09-25 18:31] LABS: Total Protein 24 Hr Ur Result 487 MG/24HR (0-149.1)
[2022-09-26] MEDS: ceFAZolin 2,000 MG/50 ML DUPLEX IV SCH ×2 (04:10→17:23)
[2022-09-26 05:21] LABS: Basophils # 0.1 10*3/uL (0.0-0.2); Basophils % 0.8 % (0.0-0.8); Eosinophils # 0.2 10*3/uL (0.0-0.87); Eosinophils % 2.8 % (0.00-10.9); Hematocrit 34.9 VOL% (35.7-47.0); Hemoglobin 11.4 GM/DL (12.0-16.0); Immature Granulocytes % 5.8 %; Immature Granulocytes Absolute 0.51 #; Lymphocytes # 0.9 10*3/uL (1.4-4.0); Lymphocytes % 10.7 % (21.3-54.2); Mean Corpuscular HGB Conc 32.7 GM/DL (32-36); Mean Corpuscular Volume 94.3 FL (87-102); Mean Platelet Volume 11.9 FL (9.6-12.0); Monocytes # 1.3 10*3/uL (0.11-0.8); Monocytes % 15.3 % (1.7-12.7); NRBC # 0.03 10*3/uL; Neutrophils % 64.6 % (38.7-73.9); Platelet Count 184 T/CUMM (130-400); White Blood Count 8.7 T/CUMM (4-12)
[2022-09-26 05:36] LABS: Calcium 7.8 MG/DL (8.5-10.1); Osmolality,Calculated 305.1 MOS/KG (273-304); Potassium 3.5 MMOL/L (3.5-5.1)
[2022-09-26 05:48] LABS: Alanine Aminotransferase < 6 U/L (13-56); Albumin 1.6 G/DL (3.4-5.0); Alkaline Phosphatase 141 U/L (45-117); Aspartate Amino Transferase 20 U/L (0-37); Blood Urea Nitrogen 74 MG/DL (7-18); Calcium 7.5 MG/DL (8.5-10.1); Carbon Dioxide 24 MMOL/L (21-32); Chloride 108 MMOL/L (98-107); Glucose 108 MG/DL (74-106); Osmolality,Calculated 303.3 MOS/KG (273-304); Potassium 3.6 MMOL/L (3.5-5.1); Sodium 141 MMOL/L (136-145); Total Protein 5.7 G/DL (6.4-8.2)
[2022-09-26 06:00] LABS: Eosinophils 2 % (0-10); Lymphocytes 13 % (20-55); Platelet Estimate Decreased; Total Cells Counted 100
[2022-09-26 06:02] LABS: Burr Cells Few; Schistocytes Few; Target Cells Few
[2022-09-26 09:50] LABS: INR 1.1; PT Patient Result 12.4 SECS (10.1-12.1)
[2022-09-26] MEDS: INSULIN REGULAR 100 UNIT/ML SUBCUT SCH ×4 (10:14→20:22)
[2022-09-26] MEDS: ENOXAPARIN 100 MG/ML SYRINGE SUBCUT SCH (13:33)
[2022-09-26] MEDS: hydrALAZINE 25 MG TABLET PO SCH ×3 (13:34→20:22)
[2022-09-26] MEDS: carvediloL 6.25 MG TABLET PO SCH ×2 (13:34→20:22)
[2022-09-26] MEDS: PANTOPRAZOLE 40 MG TABLET PO SCH (13:34)
[2022-09-26] MEDS: SILDENAFIL 20 MG TABLET PO SCH ×3 (13:34→20:22)
[2022-09-26] MEDS: FUROSEMIDE 40 MG TABLET PO SCH (17:24)
[2022-09-27] MEDS: ceFAZolin 2,000 MG/50 ML DUPLEX IV SCH ×2 (04:37→14:20)
[2022-09-27 05:03] LABS: Basophils # 0.1 10*3/uL (0.0-0.2); Basophils % 0.7 % (0.0-0.8); Eosinophils # 0.2 10*3/uL (0.0-0.87); Eosinophils % 2.6 % (0.00-10.9); Hematocrit 32.9 VOL% (35.7-47.0); Hemoglobin 10.7 GM/DL (12.0-16.0); Immature Granulocytes % 7.8 %; Immature Granulocytes Absolute 0.67 #; Lymphocytes # 1.3 10*3/uL (1.4-4.0); Lymphocytes % 14.9 % (21.3-54.2); Mean Corpuscular HGB Conc 32.5 GM/DL (32-36); Mean Corpuscular Volume 93.2 FL (87-102); Mean Platelet Volume 11.3 FL (9.6-12.0); Monocytes # 1.4 10*3/uL (0.11-0.8); Monocytes % 15.9 % (1.7-12.7); NRBC # 0.02 10*3/uL; Neutrophils % 58.1 % (38.7-73.9); Platelet Count 181 T/CUMM (130-400); Red Blood Count 3.53 MC/CUMM (3.8-5.5); Red Cell Distribution Width 18.7 % (9.3-17.3); White Blood Count 8.6 T/CUMM (4-12)
[2022-09-27 05:29] LABS: Calcium 7.4 MG/DL (8.5-10.1); Osmolality,Calculated 303.3 MOS/KG (273-304); Potassium 3.5 MMOL/L (3.5-5.1)
[2022-09-27 05:30] LABS: Alanine Aminotransferase < 6 U/L (13-56); Albumin 1.5 G/DL (3.4-5.0); Alkaline Phosphatase 133 U/L (45-117); Aspartate Amino Transferase 18 U/L (0-37); Blood Urea Nitrogen 79 MG/DL (7-18); Calcium 7.4 MG/DL (8.5-10.1); Carbon Dioxide 24 MMOL/L (21-32); Chloride 108 MMOL/L (98-107); Glucose 103 MG/DL (74-106); Osmolality,Calculated 304.3 MOS/KG (273-304); Potassium 3.4 MMOL/L (3.5-5.1); Sodium 141 MMOL/L (136-145); Total Protein 5.8 G/DL (6.4-8.2)
[2022-09-27 06:03] LABS: Eosinophils 6 % (0-10); Lymphocytes 15 % (20-55); Platelet Estimate Adequate; Total Cells Counted 100
[2022-09-27] MEDS: INSULIN REGULAR 100 UNIT/ML SUBCUT SCH ×4 (08:08→20:33)
[2022-09-27] MEDS: PANTOPRAZOLE 40 MG TABLET PO SCH (08:38)
[2022-09-27] MEDS: carvediloL 6.25 MG TABLET PO SCH ×2 (08:38→20:33)
[2022-09-27] MEDS: hydrALAZINE 25 MG TABLET PO SCH ×3 (08:38→20:32)
[2022-09-27] MEDS: SILDENAFIL 20 MG TABLET PO SCH ×3 (08:38→20:42)
[2022-09-27] MEDS: FUROSEMIDE 40 MG TABLET PO SCH (08:38)
[2022-09-27] MEDS ORDERED: POTASSIUM CHLORIDE 20 MEQ TABLET PO ONE (09:00)
[2022-09-27 12:41] LABS: Total Protein 6.2 G/DL (6.4-8.2)
[2022-09-27] MEDS: ENOXAPARIN 100 MG/ML SYRINGE SUBCUT SCH (14:20)
[2022-09-28] MEDS: ceFAZolin 2,000 MG/50 ML DUPLEX IV SCH ×2 (03:31→14:14)
[2022-09-28 05:11] LABS: Basophils # 0.1 10*3/uL (0.0-0.2); Basophils % 0.9 % (0.0-0.8); Eosinophils # 0.2 10*3/uL (0.0-0.87); Eosinophils % 2.2 % (0.00-10.9); Hematocrit 33.2 VOL% (35.7-47.0); Hemoglobin 10.8 GM/DL (12.0-16.0); Immature Granulocytes % 6.6 %; Immature Granulocytes Absolute 0.59 #; Lymphocytes # 1.1 10*3/uL (1.4-4.0); Lymphocytes % 12.4 % (21.3-54.2); Mean Corpuscular HGB Conc 32.5 GM/DL (32-36); Mean Corpuscular Volume 93.8 FL (87-102); Mean Platelet Volume 11.7 FL (9.6-12.0); Monocytes # 1.1 10*3/uL (0.11-0.8); Monocytes % 11.8 % (1.7-12.7); Neutrophils % 66.1 % (38.7-73.9); Platelet Count 195 T/CUMM (130-400); Red Blood Count 3.54 MC/CUMM (3.8-5.5); Red Cell Distribution Width 18.8 % (9.3-17.3)
[2022-09-28 05:20] LABS: Calcium 7.3 MG/DL (8.5-10.1); Osmolality,Calculated 301.5 MOS/KG (273-304)
[2022-09-28 05:27] LABS: Alanine Aminotransferase < 6 U/L (13-56); Albumin 1.6 G/DL (3.4-5.0); Alkaline Phosphatase 149 U/L (45-117); Aspartate Amino Transferase 19 U/L (0-37); Blood Urea Nitrogen 84 MG/DL (7-18); Calcium 7.7 MG/DL (8.5-10.1); Carbon Dioxide 24 MMOL/L (21-32); Chloride 106 MMOL/L (98-107); Glucose 89 MG/DL (74-106); Osmolality,Calculated 299.7 MOS/KG (273-304); Potassium 3.8 MMOL/L (3.5-5.1); Sodium 138 MMOL/L (136-145); Total Protein 6.2 G/DL (6.4-8.2)
[2022-09-28 06:25] LABS: Band Neutrophils 1 % (0-10); Burr Cells Slight; Eosinophils 1 % (0-10); Hypochromia Slight; Lymphocytes 5 % (20-55); Microcytosis Slight; Ovalocytes Slight; Platelet Estimate Adequate; Target Cells Slight; Total Cells Counted 100
[2022-09-28] MEDS: INSULIN REGULAR 100 UNIT/ML SUBCUT SCH ×4 (07:54→20:50)
[2022-09-28] MEDS: PANTOPRAZOLE 40 MG TABLET PO SCH (08:52)
[2022-09-28] MEDS: hydrALAZINE 25 MG TABLET PO SCH ×3 (08:52→20:49)
[2022-09-28] MEDS ORDERED: FUROSEMIDE 40 MG/4 ML VIAL IV ONE (09:00)
[2022-09-28] MEDS: carvediloL 6.25 MG TABLET PO SCH ×2 (09:01→20:13)
[2022-09-28] MEDS: SILDENAFIL 20 MG TABLET PO SCH ×3 (09:01→20:49)
[2022-09-28] MEDS ORDERED: ALBUMIN 25% 25 GM/100 ML VIAL IV ONE (09:30)
[2022-09-28] MEDS: ENOXAPARIN 100 MG/ML SYRINGE SUBCUT SCH (14:14)
[2022-09-29] MEDS: ceFAZolin 2,000 MG/50 ML DUPLEX IV SCH ×2 (04:07→15:56)
[2022-09-29 06:11] LABS: Basophils # 0.1 10*3/uL (0.0-0.2); Basophils % 0.7 % (0.0-0.8); Eosinophils # 0.2 10*3/uL (0.0-0.87); Eosinophils % 1.9 % (0.00-10.9); Hematocrit 33.3 VOL% (35.7-47.0); Hemoglobin 11.2 GM/DL (12.0-16.0); Immature Granulocytes Absolute 0.75 #; Lymphocytes # 1.1 10*3/uL (1.4-4.0); Mean Corpuscular HGB Conc 33.6 GM/DL (32-36); Mean Corpuscular Volume 92.8 FL (87-102); Mean Platelet Volume 11.2 FL (9.6-12.0); Monocytes # 0.9 10*3/uL (0.11-0.8); Monocytes % 8.6 % (1.7-12.7); Neutrophils % 71.8 % (38.7-73.9); Platelet Count 219 T/CUMM (130-400); Red Blood Count 3.59 MC/CUMM (3.8-5.5); Red Cell Distribution Width 18.7 % (9.3-17.3); White Blood Count 10.8 T/CUMM (4-12)
[2022-09-29 06:15] LABS: Calcium 7.7 MG/DL (8.5-10.1); Osmolality,Calculated 299.5 MOS/KG (273-304)
[2022-09-29 06:37] LABS: Band Neutrophils 1 % (0-10); Hypochromia Slight; Lymphocytes 8 % (20-55); Ovalocytes Slight; Platelet Estimate Adequate; Total Cells Counted 100
[2022-09-29 07:30] LABS: Total Protein (Chem) 6.2 G/DL (6.4-8.3)
[2022-09-29 07:31] LABS: Immunoglobulin A (Chem) 360 MG/DL (70-400); Immunoglobulin G (Chem) 1800 MG/DL (700-1600); Immunoglobulin M (Chem) 112 MG/DL (40-230)
[2022-09-29] MEDS: INSULIN REGULAR 100 UNIT/ML SUBCUT SCH ×4 (07:37→21:20)
[2022-09-29] MEDS: PANTOPRAZOLE 40 MG TABLET PO SCH (08:39)
[2022-09-29] MEDS: SILDENAFIL 20 MG TABLET PO SCH ×3 (08:39→21:20)
[2022-09-29] MEDS: carvediloL 6.25 MG TABLET PO SCH ×2 (08:39→21:20)
[2022-09-29] MEDS: hydrALAZINE 25 MG TABLET PO SCH ×3 (08:39→21:20)
[2022-09-29 09:17] LABS: Albumin (SPE) 2.5 G/DL (3.2-5.3); Albumin (SPE) Rel % 40.4 %; Alpha 1 (SPE) 0.3 G/DL (0.1-0.4); Alpha 2 (SPE) 0.7 G/DL (0.4-1.0); Alpha 2 (SPE) Rel % 10.9 %; Beta (SPE) 0.7 G/DL (0.5-1.1); Beta (SPE) Rel % 10.9 %; Gamma (SPE) Rel % 32.8 %
[2022-09-29] MEDS ORDERED: SODIUM CHLORIDE 0.9% 1,000 ML IV SCH (11:30)
[2022-09-29] MEDS ORDERED: GLUCAGON 1 MG VIAL IM PRN (13:03)
[2022-09-29] MEDS ORDERED: DEXTROSE 50% 25 GM/50 ML VIAL IV PRN (13:03)
[2022-09-29] MEDS ORDERED: LIDOCAINE 2% 5 ML VIAL ONE (13:08)
[2022-09-29] MEDS ORDERED: propofoL 200 MG/20 ML VIAL IV ONE (13:09)
[2022-09-29] MEDS ORDERED: KETAMINE 500 MG/10 ML VIAL ONE (13:15)
[2022-09-29] MEDS ORDERED: ETOMIDATE 40 MG/20 ML VIAL IV ONE (13:17)
[2022-09-29] MEDS: ENOXAPARIN 100 MG/ML SYRINGE SUBCUT SCH (15:54)
[2022-09-30] MEDS: ceFAZolin 2,000 MG/50 ML DUPLEX IV SCH ×2 (03:51→14:16)
[2022-09-30] MEDS: INSULIN REGULAR 100 UNIT/ML SUBCUT SCH ×3 (07:17→16:41)
[2022-09-30 08:28] LABS: Basophils # 0.1 10*3/uL (0.0-0.2); Basophils % 0.7 % (0.0-0.8); Eosinophils # 0.2 10*3/uL (0.0-0.87); Eosinophils % 1.6 % (0.00-10.9); Hematocrit 33.2 VOL% (35.7-47.0); Hemoglobin 10.8 GM/DL (12.0-16.0); Immature Granulocytes % 5.1 %; Immature Granulocytes Absolute 0.62 #; Lymphocytes % 8.2 % (21.3-54.2); Mean Corpuscular HGB Conc 32.5 GM/DL (32-36); Mean Corpuscular Volume 94.6 FL (87-102); Mean Platelet Volume 10.4 FL (9.6-12.0); Monocytes # 0.8 10*3/uL (0.11-0.8); Monocytes % 6.9 % (1.7-12.7); Neutrophils % 77.5 % (38.7-73.9); Platelet Count 234 T/CUMM (130-400); Red Blood Count 3.51 MC/CUMM (3.8-5.5); Red Cell Distribution Width 18.8 % (9.3-17.3); White Blood Count 12.3 T/CUMM (4-12)
[2022-09-30 08:45] LABS: Alanine Aminotransferase < 6 U/L (13-56); Albumin 1.9 G/DL (3.4-5.0); Alkaline Phosphatase 171 U/L (45-117); Aspartate Amino Transferase 16 U/L (0-37); Blood Urea Nitrogen 81 MG/DL (7-18); Calcium 7.8 MG/DL (8.5-10.1); Carbon Dioxide 21 MMOL/L (21-32); Chloride 108 MMOL/L (98-107); Glucose 96 MG/DL (74-106); Osmolality,Calculated 300.5 MOS/KG (273-304); Potassium 4.2 MMOL/L (3.5-5.1); Sodium 139 MMOL/L (136-145); Total Protein 6.5 G/DL (6.4-8.2)
[2022-09-30] MEDS: SILDENAFIL 20 MG TABLET PO SCH ×2 (08:56→16:41)
[2022-09-30] MEDS: hydrALAZINE 25 MG TABLET PO SCH ×2 (08:57→16:41)
[2022-09-30] MEDS: PANTOPRAZOLE 40 MG TABLET PO SCH (08:57)
[2022-09-30] MEDS: carvediloL 6.25 MG TABLET PO SCH (08:58)
[2022-09-30 09:05] LABS: Eosinophils 7 % (0-10); Lymphocytes 9 % (20-55); Platelet Estimate Adequate; Total Cells Counted 100
[2022-09-30] MEDS: ENOXAPARIN 100 MG/ML SYRINGE SUBCUT SCH (14:12)
[2022-09-30] MEDS ORDERED: DESITIN 4OZ/NYSTATIN 15 GRAM MIXTURE PASTE TOP SCH (15:00)
[2022-09-30 20:06] VITALS: BP 118/58
== END 2022-09-30 18:10 | disposition home health service (06) | DRG 291 ==
LOC: EDBD → EDUNIT# → N.ED 15:51 → SUATTDRO 17:58 → N.TELEN 17:58
PROVIDERS: ADMIT Hospitalist; ATTEND Internal Medicine